=== PATIENT | female | born 1960 | race Caucasian/White ===

== ENCOUNTER 2016-10-13 19:57 | Emergency (ER) | payer OTHER ==
--- NOTE | 2016-10-13 20:24 | CPEKG ---
Heart Rate: 90 RR Interval: 667 P-R Interval: 148 QRSD Interval: 76 QT Interval: 380 QTC Interval: 465 P [place]: 23 QRS [place]: 27 T Wave [place]: 26 EKG Severity - ABNORMAL ECG - EKG Impression: SINUS RHYTHM EKG Impression: VENTRICULAR PREMATURE COMPLEX EKG Impression: PROBABLE POSTERIOR INFARCT Electronically Signed By: Darrick Bernstein 13-Oct-2016 20:42:16
[2016-10-13] MEDS ORDERED: MAG HYDROX/AL HYDROX/SIMETH 30 ML UDCUP PO ONE (20:50)
[2016-10-13] MEDS ORDERED: LIDOCAINE 2% VISCOUS 15 ML UDCUP PO ONE (20:50)
[2016-10-13] MEDS ORDERED: HYOSCYAMINE SULFATE 0.125 MG TAB PO ONE (20:50)
--- NOTE | 2016-10-13 20:54 | EDPHY ---
H & P Stated Complaint: possible ulcer; palpitations/vibrations in chest; dyspnea Time Seen by Provider: 10/13/16 20:38 HPI/ROS: CHIEF COMPLAINT: Epigastric discomfort HISTORY OF PRESENT ILLNESS: The patient is a 56-year-old female with a history of peptic ulcer disease who comes to the emergency department complaining of heartburn. She is requesting more medication. She was seen by her primary Dr. Claire Moon and started on Protonix and has a follow-up appointment in 2 days with gastrologist for upper endoscopy. She states however that she continues to have burning especially when she lays back. She was also seen 5 days ago in the emergency department for palpitations. She had 2-troponins and a negative stress echo. She has frequent PVCs and is currently wearing a ZIO patch and is followed by executive vice president and chief financial officer in [place]. She states that this is unchanged and is not bothering her. She denies chest pain or shortness of breath. She has not had a fever cold. She does not wish to have further cardiac testing. She has not had any vomiting. No bloody stool. She has a history of cholecystectomy REVIEW OF SYSTEMS: Constitutional: denies: chills, fever, recent illness, recent injury EENTM: denies: blurred vision, double vision, nose congestion Respiratory: denies: cough, shortness of breath Cardiac: See HPI Gastrointestinal/Abdominal: See HPI denies: diarrhea, nausea, vomiting, blood streaked stools Genitourinary: denies: dysuria, frequency, hematuria, pain Musculoskeletal: denies: joint pain, muscle pain Skin: denies: lesions, rash, jaundice, bruising Neurological: denies: headache, numbness, paresthesia, tingling, dizziness, weakness Hematologic/Lymphatic: denies: blood clots, easy bleeding, easy bruising Immunologic/allergic: denies: HIV/AIDS, transplant EXAM: GENERAL: Well-appearing, well-nourished and in no acute distress. HEAD: Atraumatic, normocephalic. EYES: Pupils equal round and reactive to light, extraocular movements intact, sclera anicteric, conjunctiva are normal. ENT: TMs normal, nares patent, oropharynx clear without exudates. Moist mucous membranes. NECK: Normal range of motion, supple without lymphadenopathy or JVD. LUNGS: Breath sounds clear to auscultation bilaterally and equal. No wheezes rales or rhonchi. HEART: Regular rate and rhythm without murmurs, rubs or gallops. ABDOMEN: Soft, nontender, normoactive bowel sounds. No guarding, no rebound. No masses appreciated. BACK: No CVA tenderness, no spinal tenderness, step-offs or deformities EXTREMITIES: Normal range of motion, no pitting or edema. No clubbing or cyanosis. NEUROLOGICAL: Cranial nerves II through XII grossly intact. Normal speech, normal gait. 5/5 strength, normal movement in all extremities, normal sensation PSYCH: Normal mood, normal affect. SKIN: Warm, dry, normal turgor, no visible rashes or lesions. Source: Patient Exam Limitations: No limitations - Personal History Current Tetanus/Diphtheria Vaccine: Yes - Medical/Surgical History Hx Asthma: No Hx Chronic Respiratory Disease: No Hx Diabetes: No Hx Cardiac Disease: No Hx Renal Disease: No Hx Cirrhosis: No Hx Alcoholism: No Hx HIV/AIDS: No Hx Splenectomy or Spleen Trauma: No Other PMH: PMHx: Peptic ulcer disease, NEHEMIAH, migraines, GERD, HTN, fibromyalgia , PVCs. PSHx: cholecystectomy - Family History Significant Family History: No pertinent family hx - Social History Smoking Status: Former smoker Alcohol Use: Sober Drug Use: None Constitutional: Initial Vital Signs Temperature (C) 37.2 C 10/13/16 20:06 Heart Rate 84 10/13/16 20:06 Respiratory Rate 16 10/13/16 20:06 Blood Pressure 150/110 H 10/13/16 20:06 O2 Sat (%) 96 10/13/16 20:06 O2 Delivery Mode Room Air Allergies/Adverse Reactions: No Known Allergies Allergy (Verified 02/24/13 16:23) Home Medications: Medication Instructions Recorded Hyoscyamine 10/13/16 Losartan Potassium 10/13/16 Pantoprazole Sodium 10/13/16 Medical Decision Making - Diagnostics EKG Interpretation: An EKG obtained and was read and documented in trace view. Please see trace view for full reading and report. Sinus rhythm, PVC ED Course/Re-evaluation: Patient's abdomen is nontender. Her chest exam was normal. She has frequent PVCs on monitoring. We discussed testing and she declines cardiac workup. She is simply requesting something more for her heartburn. I will give her a GI cocktail and re-evaluate. 9:40 p.m. the patient is feeling completely better after GI cocktail. She is eager to go home. We discussed her palpitations at length. She is following up with [facility]. I suggested she wear oxygen at night for sleep apnea and this may help. We also discussed indications for returning. Differential Diagnosis: Partial list of the Differential diagnosis considered include but were not limited to; peptic ulcer disease, internal bleeding, acute coronary disease, arrhythmia and although unlikely based on the history and physical exam, I also considered pneumonia, PE pneumothorax. I discussed these differential diagnoses and the plan with the patient as well as the usual and expected course. The patient understands that the diagnosis is provisional and that in medicine we are not always correct and that further workup is often warranted. Usual and customary warnings were given. All of the patient's questions were answered. The patient was instructed to return to the emergency department should the symptoms at all worsen or return, otherwise to followup with the physician as we discussed. - Data Points Medications Given: Discontinued Medications Al Hydroxide/Mg Hydroxide (Maalox Susp) 30 ml PO ONCE ONE Stop: 10/13/16 20:51 Last Admin: 10/13/16 21:06 Dose: 30 ml Hyoscyamine Sulfate (Levsin, Hyomax-Sl) 0.25 mg PO ONCE ONE Stop: 10/13/16 20:51 Last Admin: 10/13/16 21:00 Dose: 0.25 mg Lidocaine (Lidocaine 2% Viscous) 15 ml PO ONCE ONE Stop: 10/13/16 20:51 Last Admin: 10/13/16 21:00 Dose: 15 ml Departure - Departure Disposition: Home, Routine, Self-Care Clinical Impression: Peptic ulcer disease Condition: Fair Instructions: Peptic Ulcer (ED) Referrals: Ruma Zuniga MD [Primary Care Provider] - As per Instructions Chaz Szymanski MD [Medical Doctor] - As per Instructions
[2016-10-13 22:10] VITALS: BP 151/100; PULSE 78; RESP 18; TEMP 98.2; O2SAT 95
== END 2016-10-13 22:16 | disposition home or self-care (01) ==
DX: K27.9 Peptic ulcer, site unspecified, unspecified as acute or chronic, without hemorrhage or perforation (principal); I10 Essential (primary) hypertension; Z87.891 Personal history of nicotine dependence; Z90.49 Acquired absence of other specified parts of digestive tract

== ENCOUNTER → 2017-06-21 | Outpatient (CLI) | payer OTHER | LOC: GIMAGING 12:51 | PROVIDERS: ATTEND Registered Nurse | DX: J40 Bronchitis, not specified as acute or chronic (principal) | CPT/HCPCS: 71046-PO ==

== ENCOUNTER 2017-07-01 02:50 | Observation (INO) | payer OTHER ==
[2017-07-01] MEDS ORDERED: NS 1,000 ML IV ONE ×3 (02:57→04:20)
[2017-07-01] MEDS ORDERED: ACETAMINOPHEN 500 MG TAB PO ONE (03:02)
--- NOTE | 2017-07-01 03:02 | EDPHY ---
H & P Time Seen by Provider: 07/01/17 02:57 HPI/ROS: HPI CHIEF COMPLAINT: Left-sided chest discomfort, shortness of breath, pleuritic pain, cough, fast heart rate HISTORY OF PRESENT ILLNESS: This patient is a 56-year-old female she presents emergency room by EMS from with palpitations or stating that she is very fast heart rate. Patient reports she has been coughing and recently diagnosed with a upper respiratory tract infection. Additionally she reports that she has been short of breath, and left-sided pleuritic sharp stabbing pain. Worse when she takes deep breath in or coughs. She states she travels extensively and has been on multiple flank to recently. She states she went to urgent care was diagnosed with an upper respiratory tract infection. Placed on albuterol inhaler and recently started antibiotic. She decided come the emergency room tonight as she could not sleep tonight had worsening shortness of breath cough, left-sided pleuritic pain. States also she has had chills and fever. Subjective fever. No recorded temp. Of note upon arrival to the emergency room she is noted to be tachycardic in the 130s to 140s. She has a temperature of 39 degrees. She is coughing. 92% room air saturation. Past Medical History: History palpitations, peptic ulcer disease, obstructive sleep apnea, hypertension, fibromyalgia, gallbladder disease Past Surgical History: Cholecystectomy, salivary gland surgery Social History: Denies daily use of drugs alcohol tobacco. Family History: Noncontributory ROS REVIEW OF SYSTEMS: A comprehensive 10 point review of systems is otherwise negative aside from elements mentioned in the history of present illness. Exam Constitutional tachycardic, febrile, tachypneic triage nursing summary reviewed, vital signs reviewed, awake/alert. Eyes normal conjunctivae and sclera, EOMI, PERRLA. HENT normal inspection, atraumatic, moist mucus membranes, no epistaxis, neck supple/ no meningismus, no raccoon eyes. Respiratory tachypnea, bronchitic sounding cough on exam dry bronchitic cough Cardiovascular tachycardic regular rhythm, no murmur, no edema, distal pulses normal. Gastrointestinal soft, non-tender, no rebound, no guarding, normal bowel sounds, no distension, no pulsatile mass. Genitourinary no CVA tenderness. Musculoskeletal no midline vertebral tenderness, full range of motion, no calf swelling, no tenderness of extremities, no meningismus, good pulses, neurovascularly intact. Skin pink, warm, & dry, no rash, skin atraumatic. Neurologic awake, alert and oriented x 3, AAOx3, moves all 4 extremities equally, motor intact, sensory intact, CN II-XII intact, normal cerebellar, normal vision, normal speech. Psychiatric normal mood/affect. Heme/Lymph/Immune no lymphadenopathy. Differential Diagnosis: Includes but is not limited to in a particular order viral syndrome, upper respiratory tract infection, bronchitis, viral pneumonia, bacterial pneumonia, influenza, dehydration, sepsis, electrolyte disturbance, check UA, rule out PE. Medical Decision Making: Plan for this patient IV establishment patient does have a fever here, will give IV fluid bolus 2 L normal saline, 1 g of Tylenol for fever control, check basic blood work including lactic acid, white count, chest x-ray, D-dimer, troponin, EKG and re-evaluate. Re-evaluation: ED x-ray chest one view: Bronchitis present. No dense infiltrate. Image interpreted by myself. Cardiac size normal. EKG interpretation by me on record in [employer] system. Impression time of EKG 2:50 a.m., sinus tach 129 T-wave abnormality V3. T-wave abnormality lead 3. Otherwise no ST elevation. 0418: Patient noted to have elevated lactic acid. She is getting 2 L of fluid. She is not hypotensive. Current heart rate 109, pulse ox 97%, blood pressure 100/59. She received Tylenol for fever control. D-dimer was positive she is getting a CT angiogram of her chest. Is CT angiogram of the chest shows no evidence of pulmonary embolism or pneumonia. Called to me by Dr. Maurice. 0520AM: Spoke with Hospalist Dr. Shanks, Agrees to Admit. HR 92, BP 92/62 0521: Patient is getting her 3rd L fluid. Blood pressures been soft 90s over 60s but normal maps. Discussed case in detail with the hospitalist service. I have given the patient 2 g of IV Rocephin. Plan will be admission for hospital for possible sepsis. Blood cultures are pending. I do not have a current source at this time. This could be viral. Her abdomen remains soft. No meningeal signs. Repeat lactic down to 1.6. Blood pressures been stable 90s over 60s. Source: Patient, EMS - Medical/Surgical History Hx Asthma: No Hx Chronic Respiratory Disease: No Hx Diabetes: No Hx Cardiac Disease: No Hx Renal Disease: No Hx Cirrhosis: No Hx Alcoholism: No Hx HIV/AIDS: No Hx Splenectomy or Spleen Trauma: No Other PMH: PMHx: Peptic ulcer disease, NEHEMIAH, migraines, GERD, HTN, fibromyalgia , PVCs. PSHx: cholecystectomy - Social History Smoking Status: Former smoker Constitutional: Initial Vital Signs Temperature (C) 38.3 C 07/01/17 02:56 Heart Rate 135 H 07/01/17 02:56 Respiratory Rate 18 07/01/17 02:56 Blood Pressure 155/127 H 07/01/17 02:56 O2 Sat (%) 94 07/01/17 02:56 O2 Delivery Mode Nasal Cannula O2 (L/minute) 2 Allergies/Adverse Reactions: No Known Allergies Allergy (Verified 07/01/17 04:18) Home Medications: Medication Instructions Recorded Albuterol [Proventil Inhaler HFA 1 - 2 puffs IH DAILY PRN 07/01/17 (*)] Metoprolol Succinate Xr [Toprol Xl 200 mg PO HS 07/01/17 100 mg (*)] Medical Decision Making - Data Points Laboratory Results: Laboratory Results 07/01/17 03:02 07/01/17 03:02 Microbiology Results: MICROBIOLOGY 07/01/17 03:20 Blood Blood Culture - Preliminary 07/01/17 03:10 Blood Blood Culture - Preliminary Medications Given: Acetaminophen (Tylenol) 650 mg PO Q4HRS PRN PRN Reason: Pain, Mild/Fever, Can Take PO Stop: 12/28/17 05:20 Last Admin: 07/02/17 20:30 Dose: 650 mg Enoxaparin Sodium (Lovenox) 40 mg SC DAILY ESTEVAN Stop: 12/28/17 08:59 Last Admin: 07/02/17 07:56 Dose: 40 mg Guaifenesin (Mucinex) 1,200 mg PO BID ESTEVAN Stop: 12/28/17 12:14 Last Admin: 07/02/17 20:27 Dose: 1,200 mg Sodium Chloride (Ns) 1,000 mls @ 100 mls/hr IV CONT ESETVAN Stop: 12/28/17 10:59 Last Admin: 07/02/17 01:43 Dose: 1,000 mls Ceftriaxone Sodium/Dextrose (Rocephin 1 Gm (Premix)) 50 mls @ 100 mls/hr IV DAILY ESTEVAN PRN Reason: Protocol Stop: 08/01/17 04:59 Last Admin: 07/02/17 05:03 Dose: 50 mls Metoprolol Tartrate (Lopressor) 12.5 mg PO BID ESTEVAN Stop: 12/29/17 11:44 Last Admin: 07/02/17 20:28 Dose: 12.5 mg Polyethylene Glycol (Miralax) 17 gm PO DAILY PRN PRN Reason: Constipation Stop: 12/29/17 13:05 Last Admin: 07/02/17 17:46 Dose: 17 gm Psyllium Hydrophilic Mucilloid (Metamucil/Konsyl) 1 each PO DAILY PRN PRN Reason: Constipation Stop: 12/29/17 13:06 Last Admin: 07/02/17 14:39 Dose: 1 each Discontinued Medications Acetaminophen (Tylenol) 1,000 mg PO EDNOW ONE Stop: 07/01/17 03:03 Last Admin: 07/01/17 03:24 Dose: 1,000 mg Sodium Chloride (Ns) 1,000 mls @ 0 mls/hr IV EDNOW ONE; Wide Open PRN Reason: Protocol Stop: 07/01/17 02:58 Last Admin: 07/01/17 03:08 Dose: 1,000 mls Sodium Chloride (Ns) 1,000 mls @ 0 mls/hr IV ONCE ONE PRN Reason: Wide Open Stop: 07/01/17 03:03 Last Admin: 07/01/17 03:10 Dose: 1,000 mls Magnesium Sulfate (Magnesium Sulf 2 Gm (Premix)) 50 mls @ 50 mls/hr IV EDNOW ONE Stop: 07/01/17 05:06 Last Admin: 07/01/17 04:25 Dose: 50 mls Sodium Chloride (Ns) 1,000 mls @ 0 mls/hr IV ONCE ONE PRN Reason: Wide Open Stop: 07/01/17 04:21 Last Admin: 07/01/17 04:26 Dose: 1,000 mls Ceftriaxone Sodium 2 gm/ (Sterile Water) 20 mls @ 300 mls/hr IV EDNOW ONE PRN Reason: Protocol Stop: 07/01/17 04:37 Last Admin: 07/01/17 05:04 Dose: 20 mls Ibuprofen (Motrin) 600 mg PO EDNOW ONE Stop: 07/01/17 05:10 Last Admin: 07/01/17 05:10 Dose: 600 mg Ondansetron HCl (Zofran) 4 mg IVP EDNOW ONE Stop: 07/01/17 03:07 Last Admin: 07/01/17 03:09 Dose: 4 mg Departure - Departure Disposition: [facility] Clinical Impression: Tachycardia Fever Qualifiers: Fever type: unspecified Qualified Code(s): R50.9 - Fever, unspecified Condition: Fair
[2017-07-01] MEDS ORDERED: ACETAMINOPHEN 500 MG TAB ONE (03:03)
[2017-07-01] MEDS ORDERED: ONDANSETRON 4 MG/2 ML VIAL IVP ONE (03:06)
[2017-07-01] MEDS ORDERED: ONDANSETRON 4 MG/2 ML VIAL ONE (03:06)
--- NOTE | 2017-07-01 03:07 | CPEKG ---
Heart Rate: 129 RR Interval: 465 P-R Interval: 148 QRSD Interval: 72 QT Interval: 292 QTC Interval: 428 P [place]: 42 QRS [place]: 22 T Wave [place]: -18 EKG Severity - BORDERLINE ECG - EKG Impression: SINUS TACHYCARDIA EKG Impression: PROBABLE LEFT ATRIAL ABNORMALITY EKG Impression: BORDERLINE T ABNORMALITIES, DIFFUSE LEADS Electronically Signed By: Prashant Mandel 01-Jul-2017 07:12:37
[2017-07-01 03:24] LABS: PLATELET COUNT 252 10^3/uL (150-400)
[2017-07-01 03:32] LABS: INR 0.94 (0.83-1.16); PROTIME(PATIENT) 12.8 SEC (12.0-15.0)
[2017-07-01 03:36] LABS: CREATINE KINASE 44 IU/L (0-156)
[2017-07-01] MEDS ORDERED: IOPAMIDOL (ISOVUE 370) 100 ML BTL IV ONE (03:41)
[2017-07-01] MEDS ORDERED: MAGNESIUM SULF 2 GM/WATER 50 ML IV ONE (04:07)
[2017-07-01] MEDS ORDERED: cefTRIAXone 2 GM in STERILE WATER INJ 20 ML IV ONE (04:34)
[2017-07-01] MEDS ORDERED: IBUPROFEN 600 MG TAB PO ONE ×2 (05:03→05:09)
[2017-07-01] MEDS ORDERED: ONDANSETRON DISINTEGRATING 4 MG TAB PO PRN (05:21)
[2017-07-01] MEDS ORDERED: ONDANSETRON 4 MG/2 ML VIAL IVP PRN (05:21)
--- NOTE | 2017-07-01 05:44 | PDGENHP ---
History and Physical - Chief Complaint Fever - History of Present Illness 56 yo F w/ HTN presents with fever. Patient has been having a cough for about a month. Then around 10 PM last night she began to feel unwell quite acutely. She describes fever, chills, malaise, racing heart, and an increase in L-sided chest wall pain. The pain had developed from weeks of coughing. Upon arrival to the ED she was noted to be febrile and tachycardic to 130's. Work-up has been unremarkable and patient is being admitted for observation and further diagnostic work-up. History Information - Allergies/Home Medication List Allergies/Adverse Reactions: No Known Allergies Allergy (Verified 07/01/17 04:18) Home Medications: Metoprolol Succinate 07/01/17 [Last Taken Unknown] I have personally reviewed and updated: family history, medical history - Past Medical History hypertension - Surgical History Additional surgical history: Epidural steroid injection ~2 weeks ago - Family History Positive for: cancer - Social History Smoking Status: Former smoker Review of Systems Review of Systems: ROS: 10pt was reviewed & negative except for what was stated in HPI & below Physical Exam Physical Exam: Temp Pulse Resp BP Pulse Ox 38.3 C 106 H 18 97/63 L 97 07/01/17 04:39 07/01/17 04:39 07/01/17 04:39 07/01/17 04:39 07/01/17 04:39 Constitutional: obese, uncomfortable Eyes: PERRL, EOMI Ears, Nose, Mouth, Throat: moist mucous membranes, no oral mucosal ulcers Cardiovascular: no murmur, rub, or gallop, tachycardia Respiratory: no respiratory distress, clear to auscultation Gastrointestinal: normoactive bowel sounds, soft, non-tender abdomen Skin: warm, other (Flushed) Musculoskeletal: full muscle strength, no muscle tenderness Neurologic: AAOx3, CN II-XII Intact Psychiatric: interacting appropriately, not anxious Lab Data & Imaging Review 07/01/17 03:02 07/01/17 03:02 WBC 6.97 10^3/uL (3.80-9.50) 07/01/17 03:02 RBC 4.66 10^6/uL (4.18-5.33) 07/01/17 03:02 Hgb 14.1 g/dL (12.6-16.3) 07/01/17 03:02 Hct 41.2 % (38.0-47.0) 07/01/17 03:02 MCV 88.4 fL (81.5-99.8) 07/01/17 03:02 MCH 30.3 pg (27.9-34.1) 07/01/17 03:02 MCHC 34.2 g/dL (32.4-36.7) 07/01/17 03:02 RDW 13.2 % (11.5-15.2) 07/01/17 03:02 Plt Count 252 10^3/uL (150-400) 07/01/17 03:02 MPV 9.8 fL (8.7-11.7) 07/01/17 03:02 Neut % (Auto) 88.8 % (39.3-74.2) H 07/01/17 03:02 Lymph % (Auto) 5.2 % (15.0-45.0) L 07/01/17 03:02 [place] % (Auto) 4.3 % (4.5-13.0) L 07/01/17 03:02 Eos % (Auto) 1.0 % (0.6-7.6) 07/01/17 03:02 Baso % (Auto) 0.4 % (0.3-1.7) 07/01/17 03:02 Nucleat RBC Rel Count 0.0 % (0.0-0.2) 07/01/17 03:02 Absolute Neuts (auto) 6.19 10^3/uL (1.70-6.50) 07/01/17 03:02 Absolute Lymphs (auto) 0.36 10^3/uL (1.00-3.00) L 07/01/17 03:02 Absolute Monos (auto) 0.30 10^3/uL (0.30-0.80) 07/01/17 03:02 Absolute Eos (auto) 0.07 10^3/uL (0.03-0.40) 07/01/17 03:02 Absolute Basos (auto) 0.03 10^3/uL (0.02-0.10) 07/01/17 03:02 Absolute Nucleated RBC 0.00 10^3/uL (0-0.01) 07/01/17 03:02 Immature Gran % 0.3 % (0.0-1.1) 07/01/17 03:02 Immature Gran # 0.02 10^3/uL (0.00-0.10) 07/01/17 03:02 PT 12.8 SEC (12.0-15.0) 07/01/17 03:02 INR 0.94 (0.83-1.16) 07/01/17 03:02 APTT 26.9 SEC (23.0-38.0) 07/01/17 03:02 D-Dimer 2.12 ug/mLFEU (0.00-0.50) H 07/01/17 03:02 VBG Lactic Acid 1.6 mmol/L (0.7-2.1) D 07/01/17 04:20 Sodium 142 mEq/L (135-145) 07/01/17 03:02 Potassium 4.2 mEq/L (3.5-5.2) 07/01/17 03:02 Chloride 104 mEq/L (97-110) 07/01/17 03:02 Carbon Dioxide 22 mEq/l (22-31) 07/01/17 03:02 Anion Gap 16 mEq/L (8-16) 07/01/17 03:02 BUN 15 mg/dL (7-23) 07/01/17 03:02 Creatinine 0.7 mg/dL (0.6-1.0) 07/01/17 03:02 Estimated GFR > 60 07/01/17 03:02 Glucose 108 mg/dL (70-100) H 07/01/17 03:02 Calcium 9.6 mg/dL (8.5-10.4) 07/01/17 03:02 Magnesium 1.5 mg/dL (1.6-2.3) L 07/01/17 03:02 Total Bilirubin 0.7 mg/dL (0.1-1.4) 07/01/17 03:02 Conjugated Bilirubin 0.4 mg/dL (0.0-0.5) 07/01/17 03:02 Unconjugated Bilirubin 0.3 mg/dL (0.0-1.1) 07/01/17 03:02 AST 309 IU/L (14-46) H 07/01/17 03:02 ALT 204 IU/L (9-52) H 07/01/17 03:02 Alkaline Phosphatase 123 IU/L (38-126) 07/01/17 03:02 Creatine Kinase 44 IU/L (0-156) 07/01/17 03:02 CK-MB (CK-2) Fraction 0.52 ng/mL (0.00-3.19) 07/01/17 03:02 Troponin I < 0.012 ng/mL (0.000-0.034) 07/01/17 03:02 NT-Pro-B Natriuret Pep 46 pg/mL (0-125) 07/01/17 03:02 Total Protein 7.0 g/dL (6.3-8.2) 07/01/17 03:02 Albumin 4.2 g/dL (3.5-5.0) 07/01/17 03:02 Lipase 206 IU/L (23-300) 07/01/17 03:02 Beta HCG, Qual NEGATIVE 07/01/17 03:02 Urine Color YELLOW 07/01/17 04:30 Urine Appearance CLEAR 07/01/17 04:30 Urine pH 5.0 (5.0-7.5) 07/01/17 04:30 Ur Specific [place] 1.029 (1.002-1.030) 07/01/17 04:30 Urine Protein NEGATIVE (NEGATIVE) 07/01/17 04:30 Urine Ketones NEGATIVE (NEGATIVE) 07/01/17 04:30 Urine Blood NEGATIVE (NEGATIVE) 07/01/17 04:30 Urine Nitrate NEGATIVE (NEGATIVE) 07/01/17 04:30 Urine Bilirubin NEGATIVE (NEGATIVE) 07/01/17 04:30 Urine Urobilinogen NEGATIVE EU (0.2-1.0) 07/01/17 04:30 Ur Leukocyte Esterase NEGATIVE (NEGATIVE) 07/01/17 04:30 Urine Glucose NEGATIVE (NEGATIVE) 07/01/17 04:30 Nasal Influenza A PCR NEGATIVE FOR FLU A (NEGATIVE) 07/01/17 03:15 Nasal Influenza B PCR NEGATIVE FOR FLU B (NEGATIVE) 07/01/17 03:15 Imaging Review: CTPE Prelim: Neg called Oscar at 4:20 am Visualized and Interpreted Chest x-ray results: Yes Chest X-Ray results: no infiltrate Visualized and Interpreted EKG results: Yes EKG Interpretation: Positive for: other (Sinus tach, diffuse T wave flattening) Assessment & Plan Assessment: 56 yo F w/ HTN presents with sepsis of unclear etiology. Plan: 1. Sepsis - Unclear etiology; most likely viral etiology noting non-specific symptoms and normal WBC. 2/4 SIRS criteria present and SOFA score of 5 on admission. Patient did have an epidural spinal injection 2 weeks ago, so diskitis, OM, epidural abscess are also considerations. Patient denies back pain. CTPE negative for pneumonia and UA non-infectious. - Admit to PCU for observation - Blood cultures, respiratory PCR, procalcitonin - Will add on ESR/CRP - S/p CTX in ED, will observer off of antibiotics - CTPE awaiting final read, this will offer some insight into possible spinal infection, although this seems less likely. If condition worsens or blood cultures are positive, could pursue MRI. 2. HTN - Hold home metoprolol in setting of sepsis. Diet - Regular Code - Full Ppx - LMWH Dispo - Admit under observation status
--- NOTE | 2017-07-01 10:07 | CPEKG ---
Heart Rate: 88 RR Interval: 682 P-R Interval: 172 QRSD Interval: 72 QT Interval: 384 QTC Interval: 465 P [place]: 68 QRS [place]: 29 T Wave [place]: 11 EKG Severity - ABNORMAL ECG - EKG Impression: SINUS RHYTHM EKG Impression: INFERIOR Q WAVES NOTED, ALSO EARLY R WAVE PROGRESSION EKG Impression: COMPARED TO EKG DATED 10/13/2016 THESE CHANGES ARE NOT NEW AND MAY SIGNIFY OLD EKG Impression: POSTERIOR VT Electronically Signed By: Alonzo Stearns 01-Jul-2017 10:47:49
[2017-07-01] MEDS ORDERED: ALBUTEROL 3 ML DEYVIAL IH PRN (12:05)
--- NOTE | 2017-07-01 12:50 | ECHO ---
[email or web address] [address] [address] Main: [phone] Fax: Transthoracic Echocardiogram Name: EBONI FALCON MR#: [id number] Study Date: 07/01/2017 Study Time: 11:35 AM Date of : 1960 Age: 56 year(s) Height: 170.2 cm (67 in.) Weight: 107.96 kg (238 lb.) BSA: 2.18 m2 Gender: Female Examination: Echo Indication: Cough, Shortness of breath, Q-waves on EKG Image Quality: Contrast: Requested by: Cari Suresh BP: 94 mmHg/58 mmHg Heart Rate: Rhythm: Indication: Cough, Shortness of breath, Q-waves on EKG Procedure Staff Language Translator: Shaw Hopper RDCS Reading Physician: Mandeep Hopper MD Requesting Provider: Conclusions: Normal global systolic LV function. EF is 67 %. There is no mitral valve regurgitation. Trivial tricuspid valve regurgitation. Measurements: Chambers Valvular Assessment AV/MV Valvular Assessment TV/PV Normal Normal Normal Name Value Range Name Value Range Name Value Range Ao Angelina (MM): 3.0 cm (2.2 cm-3.7 AV Vmax: 1.47 m/s (1 m/s-1.7 TR Vmax: 2.43 mm/s ( - ) cm) m/s) TR PGmax: 24 mmHg ( - ) IVSd (2D): 0.9 cm (0.6 cm-1.1 AV maxP mmHg ( - ) syst. PAP: 29 mmHg ( - ) cm) LVOT Vmax: 1.16 m/s (0.7 m/s-1.1 PV Vmax: 1.02 m/s (0.6 m/s-0.9 LVDd (2D): 3.9 cm (3.9 cm-5.3 m/s) m/s) cm) MV E Vmax: 0.93 m/s ( - ) PV PGmax: 4 mmHg ( - ) LVDs (2D): 2.5 cm (2.1 cm-4 MV A Vmax: 0.98 m/s ( - ) cm) MV E/A: 0.95 ( - ) LVPWd (2D): 1.1 cm ( - ) LVEF (2D): 67 (>=54 %) Continued Measurements: Chambers Valvular Assessment AV/MV Valvular Assessment TV/PV Name Value Name Value Name Value LADs Lon.1 cm MV E' Septal: 0.07 m/s CVP (est.): 5 mmHg LA Area: 14.2 cm2 MV E/E' Septal: 13.30 LA Volume: 44 ml MV E/E' Lateral: 7.80 LA Volume Index: 20.2 ml/m2 Patient: EBONI FALCON Study Date: 07/01/2017 Page 1 of 2 11:35 AM Findings: Left Ventricle: Normal size left ventricle. No LV hypertrophy. Normal global systolic LV function. EF is 67 %. No regional wall motion abnormality. Diastolic dysfunction is present. . Right Ventricle: Normal size right ventricle. Normal RV function. Left Atrium: The left atrium is normal in size. Right Atrium: The right atrium is normal in size. Lipomatous interatrial septum. Prominant Chiari, Eustachian valve in RA. Mitral Valve: The mitral valve is normal in appearance and function. There is no mitral valve regurgitation. Aortic Valve: The aortic valve is normal in appearance and function. The aortic valve is tri-leaflet. Tricuspid Valve: The tricuspid valve is normal in appearance and function. Trivial tricuspid valve regurgitation. The pulmonary artery pressure is normal. Pulmonic Valve: The pulmonic valve is normal in appearance and function. Aorta: The aorta is normal. Pericardium: No pericardial effusion. (No Signature Object) Patient: EBONI FALCON Study Date: 07/01/2017 Page 2 of 2 11:35 AM [id number]
[2017-07-01] MEDS: guaiFENesin 600 MG TAB.ER PO SCH ×2 (13:19→21:10)
[2017-07-01] MEDS: ENOXAPARIN 40 MG/0.4 ML SYR SC SCH (13:19)
[2017-07-01] MEDS: ACETAMINOPHEN 325 MG TAB PO PRN ×2 (16:17→21:10)
--- NOTE | 2017-07-01 16:48 | HOSPPROG ---
Hospitalist Progress Note Assessment/Plan: # Sepsis - 2/4 SIRS criteria and SOFA score 5 on admission. Continue to suspect viral etiology. No focal bacterial source of infection. Epidural spinal injection 2 weeks ago noted so diskitis, OM, epidural abscess are considerations, but patient denies back pain. CTPE negative for pneumonia and no e/o spinal abscess/infection. UA non-infectious. Prominent symptoms are respiratory with cough/bronchospasm. RVP neg. PCT 0.57, higher risk for bacterial infection but CRP neg. - Will continue Ceftriaxone until BCx's neg given presentation with fever, hypotension and elevated PCT - RUQ u/s as below - Consider spinal MRI if she develops back pain or positive BCx's # Elevated LFT's - bili and alk phos normal, isolated transaminitis. Minimal RUQ tenderness. Could be related to viral process. No etoh hx. - Check RUQ u/s # HTN - Hold home metoprolol in setting of sepsis of hypotension Diet - Regular Code - Full Ppx - LMWH Dispo - obs Subjective: Pt feels a little better. Still coughing, wet cough, but non- productive. No CP or SOB. Had rapid HR last night in setting of fevers/chills , seems better today. No abdominal pain. No back pain. Objective: Vital Signs Temp Pulse Resp BP Pulse Ox 38.4 C H 94 23 H 125/74 H 93 07/01/17 16:00 07/01/17 16:00 07/01/17 16:00 07/01/17 16:00 07/01/17 16:00 Microbiology 07/01/17 11:51 Respiratory Panel (PCR) - Final Nasal, Sinus - Anaerobic Tube/Swab No Organism Detected 06/30/17 07/01/17 07/02/17 05:59 05:59 05:59 Intake Total 1350 Output Total 450 Balance 900 PT 12.8 SEC (12.0-15.0) 07/01/17 03:02 INR 0.94 (0.83-1.16) 07/01/17 03:02 - Physical Exam Constitutional: no apparent distress Eyes: PERRL Ears, Nose, Mouth, Throat: moist mucous membranes Cardiovascular: regular rate and rhythym Respiratory: no respiratory distress, clear to auscultation Gastrointestinal: normoactive bowel sounds, other (soft, nd, mild RUQ TTP, no r/ r/g) Skin: warm Musculoskeletal: full muscle strength Neurologic: AAOx3 Psychiatric: interacting appropriately ICD10 Worksheet Patient Problems: Problems Problem Status Onset Fever Acute Tachycardia Acute Salivary duct calculi Acute
[2017-07-01] MEDS: NS 1,000 ML IV SCH (17:53)
[2017-07-02] MEDS: NS 1,000 ML IV SCH (01:43)
[2017-07-02] MEDS: ACETAMINOPHEN 325 MG TAB PO PRN ×4 (01:43→20:30)
[2017-07-02] MEDS: ENOXAPARIN 40 MG/0.4 ML SYR SC SCH (07:56)
[2017-07-02] MEDS: guaiFENesin 600 MG TAB.ER PO SCH ×2 (07:56→20:27)
[2017-07-02 09:56] LABS: HEPATITIS B SURFACE ANTIGEN NEGATIVE (NEGATIVE)
--- NOTE | 2017-07-02 09:57 | ASMTCASEMG ---
Living Arrangements What is your living Answers: Alone arrangement? Who do you live with? Type Of Residence What kind of residence do Answers: Unknown you live in? Discharge Plan Comments Coordination Status Comments Notes: Patient is a 56yo single female who was admitted observation status for sepsis; unclear etiology. Patient only lists a PO Box, so living arrangements are unclear at this time also. No therapies have been ordered yet. D/C needs TBD. CM will follow. Date Signed: 07/02/2017 09:56 AM Electronically Signed By:Ling Fontenot LCSW
[2017-07-02 10:02] LABS: HEPATITIS A ANTIBODY IGM (BCH) NEGATIVE (NEGATIVE); HEPATITIS B CORE AB IGM NEGATIVE (NEGATIVE)
[2017-07-02 10:13] LABS: HEPATITIS C ANTIBODY TOTAL NEGATIVE (NEGATIVE)
[2017-07-02] MEDS: METOPROLOL TARTRATE 25 MG TAB PO SCH ×2 (12:10→20:28)
[2017-07-02] MEDS ORDERED: POLYETHYLENE GLYCOL 3350 17 GM PKT PO PRN (13:06)
[2017-07-02] MEDS ORDERED: PSYLLIUM METAMUCIL 1 PKT PO PRN (13:07)
--- NOTE | 2017-07-02 15:08 | HOSPPROG ---
Hospitalist Progress Note Assessment/Plan: 56 yo F with PMH of HTN and one month of cough and generally feeling unwell presenting with sepsis # Sepsis - 2/4 SIRS criteria and SOFA score 5 on admission. Continue to suspect viral etiology however viral PCR negative. Blood culture with ngtd. Personally reviewed chest CT without PNA, PE, effusion. Epidural spinal injection though no c/o back pain and again cxs negative back pain. UA negative. PCT 0.57, higher risk for bacterial infection but CRP neg. RUQ US without e/o infection - Will continue Ceftriaxone until BCx's neg given presentation with fever, hypotension and elevated PCT. Now afebrile since 1600 on 07/01 # Elevated LFT's - bili and alk phos normal, isolated transaminitis. RUQ US normal, hep serologies negative # HTN - remains slightly low but normalizing # tachycardia: related to problem 1 but also holding BB, will resume at lower dose # IP status Patient new to my care, old records reviewed and summarized as above. Subjective: no significnat overnight events, no fever since yesterday, cough has imporved Objective: Vital Signs Temp Pulse Resp BP Pulse Ox 36.9 C 91 18 136/78 H 96 07/02/17 12:05 07/02/17 12:05 07/02/17 12:05 07/02/17 12:05 07/02/17 12:05 Microbiology 07/01/17 11:51 Respiratory Panel (PCR) - Final Nasal, Sinus - Anaerobic Tube/Swab No Organism Detected 07/01/17 07/02/17 07/03/17 05:59 05:59 05:59 Intake Total 5353 Output Total 1950 Balance 3403 PT 12.8 SEC (12.0-15.0) 07/01/17 03:02 INR 0.94 (0.83-1.16) 07/01/17 03:02 awake alert nad anicteric op clear rrr no mrg cta b, dry cough soft nt nd no cce warm dry well perfused oriented appropriate ICD10 Worksheet Patient Problems: Problems Problem Status Onset Salivary duct calculi Acute Fever Acute Tachycardia Acute
[2017-07-03 04:12] VITALS: O2SAT 96
[2017-07-03 08:54] VITALS: BP 116/75; PULSE 92; RESP 20; TEMP 98
[2017-07-03] MEDS: guaiFENesin 600 MG TAB.ER PO SCH (09:34)
[2017-07-03] MEDS: METOPROLOL TARTRATE 25 MG TAB PO SCH (09:34)
[2017-07-03] MEDS: ENOXAPARIN 40 MG/0.4 ML SYR SC SCH (09:34)
--- NOTE | 2017-07-03 09:58 | PDDCSUM ---
Discharge Summary Discharge Summary: Dates of service 07/01-07/03/2017 Consultations: none Procedures performed: chest/thorax CTA, abd US, echocardiogram Hospital course by problem: 56 yo F with PMH of HTN and one month of cough and generally feeling unwell presenting with sepsis # Sepsis- 2/4 SIRS criteria and SOFA score 5 on admission. Suspect viral etiology. Viral resp panel negative. UA negative. Blood culture with ngtd. CTA and abd US without e/o source of infection. Afebrile now for 48 hours, feeling much better. Will dc abx and discharge home with plan for close f/u with PCP # cough: patient with one month of dry cough, as above in terms of infectious w/ u. Could be post viral cough variant RAD, continue inhalers. Other possibility would be related to reflux. Lungs remain clear and all in all suspect this is benign but again asking for f/u with PCP. Consider addition of advair if not improved versus ranitidine or PPI. # Elevated LFT's - bili and alk phos normal, isolated transaminitis. RUQ US normal, hep serologies negative. Trending down, recommend f/u with PCP to be sure normalizes # HTN - remains slightly low but normalizing. Will have patient continue to hold high dose of BB until f/u with PCP # tachycardia: related to problem 1 and possible due to holding metoprolol on admission. Resumed metop at lower dose and as above f/u with PCP dc home F/u Items: - chronic cough--if still present consider further w/u as well as consider addition of advair and or PPI/H2B - elevated LFTs-repeat to be sure coming down - BP--has been low, have asked patient to stay on low dose of metoprolol (12.5 BID) until f/u with PCP to determine if should be increased back to 200 qhs > 35 min spent in dc of patient, more than half in coordination of care
== END 2017-07-03 11:30 | disposition home or self-care (01) ==
LOC: EDBD → EDUNIT# → F2N 06:38
PROVIDERS: ADMIT Student in an Organized Health Care Education/Training Program; ATTEND Internal Medicine
DX: A41.89 Other specified sepsis (principal); B97.89 Other viral agents as the cause of diseases classified elsewhere; K21.9 Gastro-esophageal reflux disease without esophagitis; I10 Essential (primary) hypertension; R94.5 Abnormal results of liver function studies; R05 Cough
CPT/HCPCS: 71045; 71275; 76705; 93005; 93306; 96361; 96365; 96375; 99285; G0378; G0472; J0696; J1650; J2405; J3475; Q9967

== ENCOUNTER → 2018-03-18 | Outpatient (CLI) | payer OTHER | LOC: BRMIMAGING 09:03 | PROVIDERS: ATTEND Family Medicine | DX: N60.02 Solitary cyst of left breast (principal) | CPT/HCPCS: 76641-PO ==

== ENCOUNTER → 2018-06-02 | Outpatient (CLI) | payer BC ==
[~2018-06-02] MED LIST: IOPAMIDOL (ISOVUE 370) 100 ML BTL IV ONE; METOPROLOL TARTRATE 5 MG/5 ML INJ ONE; NITROGLYCERIN 0.4 MG BTL SL ONE
== END ==
LOC: FIMAGING 07:56
PROVIDERS: ATTEND Internal Medicine Cardiovascular Disease
DX: I25.10 Atherosclerotic heart disease of native coronary artery without angina pectoris (principal)
CPT/HCPCS: Q9967